=== PATIENT | female | born 1995 | race Caucasian/White ===

== ENCOUNTER 2024-01-31 14:21 | Emergency (ER) | payer SELFPAY ==
[2024-01-31 14:30] VITALS: BP 110/68; PULSE 96; RESP 16; TEMP 36.8; O2SAT 98; BMI 24.1
[2024-01-31 14:49] VITALS: PULSE 70; O2SAT 98
--- NOTE | 2024-01-31 14:49 | PC.NURSE ---
Pt states she bit a hole in her tongue a week ago and has had increased difficulty eating x3 days.
[2024-01-31 15:00] VITALS: BP 105/63; PULSE 90; O2SAT 95
--- NOTE | 2024-01-31 15:02 | ED_ITS ---
HPI - Fever General Chief Complaint: Fever Stated Complaint: Fever and bit through her tongue Time Seen by Provider: 01/31/24 14:39 Source: patient Mode of arrival: Wheelchair History of Present Illness HPI Narrative: 28-year-old female presents for feeling feverish as well as tongue pain. She states several days ago she bit through her tongue and has had persistent pain since that time. She has been using Orajel on the area of her tongue that is painful without significant improvement. Patient denies specific symptoms such as cough, abdominal pain, dysuria, other complaints. Patient was afebrile in triage. Related Data Previous Rx's Medication Instructions Recorded lidocaine HCl 2 % mucosal solution 1 applic mucous membrane QID PRN 01/31/24 (Lidocaine Viscous) pain #100 mL Allergies Allergy/AdvReac Type Severity Reaction Status Date / Time No Known Drug Allergies Allergy Verified 01/31/24 16:03 Patient History tobacco type: vaping Substance Use Type: marijuana Exam Initial Vital Signs Initial Vital Signs: Vital Signs Temperature 98.3 F 01/31/24 14:30 Pulse Rate 96 H 01/31/24 14:30 Respiratory Rate 16 01/31/24 14:30 Blood Pressure 110/68 01/31/24 14:30 Pulse Oximetry 98 01/31/24 14:30 Oxygen Delivery Method Room Air 01/31/24 14:30 Const: Awake, alert, no acute distress, nontoxic appearing Mouth: Moist mucous membranes, aphthous ulcer on left lateral aspect of posterior tongue Cardiac: regular rate, regular rhythm RESP: unlabored, clear bilaterally, no wheezing Skin: Warm, Dry, intact, no rashes Neuro: AO x3, CN II-XII grossly intact, moves all extremities Course Orders Ordered: Discontinued Medications Sodium Chloride (Normal Saline 0.9%) 1,000 mls @ 1,000 mls/hr IV BOLUS ONE Stop: 01/31/24 16:00 Last Admin: 01/31/24 15:13 Dose: 1,000 mls/hr Documented By: JF Ketorolac Tromethamine (Ketorolac 30 Mg/Ml Vial) 15 mg IV NOW ONE Stop: 01/31/24 15:02 Last Admin: 01/31/24 15:13 Dose: 15 mg Documented By: JF Vital Signs Vital signs: Vital Signs - 8 hr 01/31/24 14:30 Temperature 98.3 F Pulse Rate 96 H Respiratory Rate 16 Blood Pressure 110/68 Pulse Oximetry 98 Oxygen Delivery Method Room Air MDM - Fever Differential Diagnosis Differential diagnosis: Likely cellulitis, fever of unknown origin and gastroenteritis Lab Data 01/31/24 15:17 01/31/24 15:17 Labs: Lab Results 01/31/24 Range/Units 15:17 WBC 14.1 H (4.5-11.0) X10^3/uL RBC 4.49 (4.0-5.2) X10^6/uL Hgb 13.6 (12.0-16.0) g/dL Hct 38.4 (36-46) % MCV 85.7 (80-100) fL MCH 30.2 (26-34) PG MCHC 35.3 (30-36) % RDW 13.0 (11.6-14.8) % Plt Count 237 (150-400) X10^3/uL Neut % (Auto) 87.0 H (50-75) % Lymph % (Auto) 4.4 L (25-40) % [place] % (Auto) 8.5 (3-14) % Eos % (Auto) 0.0 L (2-4) % Baso % (Auto) 0.1 (0-2) % Neut # (Auto) 46240 H (8845-5443) /uL Lymph # (Auto) 600 L (2749-1352) /uL [place] # (Auto) 1200 H (0-900) /uL Eos # (Auto) 0 (0-450) /uL Baso # (Auto) 0 (0-100) /uL Sodium 134 L (137-145) mmol/L Potassium 3.5 (3.4-5.1) mmol/L Chloride 99 (98-107) mmol/L Carbon Dioxide 23 (22-32) mmol/L BUN 6 L (7-17) mg/dL Creatinine 0.68 (0.52-1.04) mg/dL Estimated GFR > 60 (>60) mL/min BUN/Creatinine Ratio 8.8 (6-22) Glucose 137 H (70-100) mg/dL Calcium 9.4 (8.4-10.2) mg/dL Total Bilirubin 1.6 H (0.2-1.3) mg/dL AST 24 (14-36) IU/L ALT 17 (<35) IU/L Alkaline Phosphatase 85 (38-126) U/L Total Protein 8.0 (6.3-8.2) g/dL Albumin 4.5 (3.5-5.0) g/dL Globulin 3.5 (1.7-4.1) g/dL Albumin/Globulin Ratio 1.3 (1.0-2.8) Chlamy pneumoniae PCR Not detected (Not Detect) Adenovirus (PCR) Not detected (Not Detect) B.parapertussis DNA PCR Not detected (Not Detecte) Coronavirus OC43 (PCR) Not detected (Not Detect) Coronavirus HKU1 (PCR) Not detected (Not Detect) Coronavirus 229E (PCR) Not detected (Not Detect) SARS-CoV-2 (PCR) Not detected (Not Detecte) Coronavirus NL63 (PCR) Not detected (Not Detect) Human Metapneumovir PCR Not detected (Not Detect) Influenza Type A (PCR) Not detected (Not Detect) Influenza Type B (PCR) Not detected (Not Detect) M. pneumoniae (PCR) Not detected (Not Detect) Parainfluenza 1 (PCR) Not detected (Not Detect) Parainfluenza 2 (PCR) Not detected (Not Detect) Parainfluenza 3 (PCR) Not detected (Not Detect) Parainfluenza 4 (PCR) Not detected (Not Detect) RSV (PCR) Not detected (Not Detect) Entero/Rhino (PCR) Not detected (Not Detect) MDM Narrative Medical decision making narrative: General feeling of malaise as well as concerned that her tongue may be infected. There was no laceration seen anywhere on the surface of patient's tongue, there is an aphthous ulcer on the left-hand side of her tongue without evidence of acute laceration or infection. Patient reports feeling feverish but is afebrile in triage. Vital signs stable. No focal physical exam abnormalities. Laboratory work shows mild leukocytosis of uncertain significance. Respiratory panel negative. Other laboratory work within normal limits. Patient counseled to take Tylenol and ibuprofen as needed for symptoms. I initially was going to prescribe magic mouthwash, however after calling several pharmacies in the area no one currently has magic mouthwash and instead topical lidocaine ordered for comfort. Discharge Plan Departure Patient Disposition: Home Clinical Impression: Painful tongue, Malaise Instructions: DI for Aphthous Ulcers (Canker Sores) Activity Restrictions/Additional Instructions: Continue to take Tylenol and ibuprofen for pain. Drink plenty of fluids Prescriptions: New lidocaine HCl [Lidocaine Viscous] 2 % solution 1 applic mucous membrane QID PRN (Reason: pain) Qty: 100 0RF Stand Alone Forms: Patient Portal/API
[2024-01-31] MEDS: SODIUM CHLORIDE 0.9% 1,000 ML 1000 ML IV (15:13)
[2024-01-31] MEDS: KETOROLAC 30 MG/ML VIAL 15 MG IV (15:13)
[2024-01-31 15:27] LABS: Add Manual Diff / Slide Review NO; Basophils Absolute Auto 0 /uL (0-100); Basophils Percent Auto 0.1 % (0-2); Eosinophils Absolute Auto 0 /uL (0-450); Hematocrit 38.4 % (36-46); Hemoglobin 13.6 g/dL (12.0-16.0); Lymphocytes Absolute Auto 600 /uL (1100-4500); Lymphocytes Percent Auto 4.4 % (25-40); Mean Corpuscular HGB Conc 35.3 % (30-36); Mean Corpuscular Hemoglobin 30.2 PG (26-34); Mean Corpuscular Volume 85.7 fL (80-100); Monocytes Absolute Auto 1200 /uL (0-900); Monocytes Percent Auto 8.5 % (3-14); Neutrophils Absolute Auto 12300 /uL (1500-7000); Platelet Count 237 X10^3/uL (150-400); Red Blood Cell Count 4.49 X10^6/uL (4.0-5.2); White Blood Cell Count 14.1 X10^3/uL (4.5-11.0)
[2024-01-31 15:30] VITALS: BP 108/55; PULSE 72; O2SAT 98
[2024-01-31 15:38] LABS: Alanine Aminotransferase 17 IU/L (<35); Albumin 4.5 g/dL (3.5-5.0); Albumin Globulin Ratio 1.3 (1.0-2.8); Alkaline Phosphatase 85 U/L (38-126); Aspartate Aminotransferase 24 IU/L (14-36); BUN Creatinine Ratio 8.8 (6-22); Bilirubin Total 1.6 mg/dL (0.2-1.3); Blood Urea Nitrogen 6 mg/dL (7-17); Calcium 9.4 mg/dL (8.4-10.2); Carbon Dioxide 23 mmol/L (22-32); Chloride 99 mmol/L (98-107); Estimated Glomerular Filt Rate > 60 mL/min (>60); Globulin 3.5 g/dL (1.7-4.1); Glucose 137 mg/dL (70-100); HEMOLYSIS 17 (0-50); Potassium 3.5 mmol/L (3.4-5.1); Sodium 134 mmol/L (137-145)
[2024-01-31 16:00] VITALS: BP 112/56; PULSE 76; O2SAT 98
[2024-01-31 16:14] LABS: Adenovirus Not Detected (Not Detect); B. parapertussis Not Detected (Not Detecte); Bordetella pertussis Not Detected (Not Detect); Chlamydophila pneumoniae Not Detected (Not Detect); Coronavirus 229E Not Detected (Not Detect); Coronavirus HKU1 Not Detected (Not Detect); Coronavirus NL 63 Not Detected (Not Detect); Coronavirus OC43 Not Detected (Not Detect); Human Metapneumovirus Not Detected (Not Detect); Human Rhinovirus/Enterovirus Not Detected (Not Detect); Influenza A Not Detected (Not Detect); Influenza B Not Detected (Not Detect); Mycoplasma pneumoniae Not Detected (Not Detect); Parainfluenza Virus 1 Not Detected (Not Detect); Parainfluenza Virus 2 Not Detected (Not Detect); Parainfluenza Virus 3 Not Detected (Not Detect); Parainfluenza Virus 4 Not Detected (Not Detect); Respiratory Syncytial Virus Not Detected (Not Detect); SARS- CoV-2 Not Detected (Not Detecte)
[2024-01-31 16:36] VITALS: TEMP 37.1
== END 2024-01-31 16:36 | disposition home or self-care (01) ==
PROVIDERS: Emergency Provider Emergency Medicine
DX: K14.6 Glossodynia (principal); R53.81 Other malaise; Z20.822 Contact with and (suspected) exposure to COVID-19
CPT/HCPCS: 36415; 80053; 85025; 87633; 96361; 96374; 99284; J1885